=== PATIENT | female | born 1995 | race American Indian/Alaskan Native ===

== ENCOUNTER 2016-10-05 14:56 | Emergency (ER) | payer SELFPAY ==
[2016-10-05 15:14] VITALS: BP 135/72
[2016-10-05 17:21] LABS: Bilirubin,Urine NEG (Negative); Blood,Urine NEG (Negative); Ketones,Urine NEG (Negative); Leukocyte Esterase,Urine NEG (Negative); Mucus,Urine 1+ /HPF; Nitrite,Urine NEG (Negative); Protein,Urine <15 mg/dL mg/dL (Negative); Urobilinogen,Urine < 2.0 mg/dL (<2.0)
--- NOTE | 2016-10-05 18:10 | Emergency Department Report ---
ED Female HPI - General Chief complaint: Urogenital-Female Stated complaint: UTERINE PAIN Time Seen by Provider: 10/05/16 16:50 Source: patient, family Mode of arrival: Ambulatory Limitations: No Limitations - History of Present Illness Initial comments: Patient here and reported that she is having abdominal pain on and off that feels crampy. she says she has increased urinary frequency will allow. Sensation is urinary tract infection. She's had gone on times one week. Last menstrual period was 10/07/16. Patient also states that she has unprotected sex that she is not having any vaginal discharge and her partner didn't have any symptoms of STD. She is not having any pain at present. She said she had cramping but now she is not having any cramping. Pain is located in her pelvic area when it comes. She says she doesn't know if she is and she would like to get tested. Denies any nausea vomiting or fever or chills. No vaginal bleeding or back pain. MD Complaint: pelvic pain (off and on) Onset/Timin -: week(s) Severity scale (0 -10): 0 Consistency: intermittent (abdominal pain but none at present) Are you Now?: No (unsure if she is ) Last Menstrual Period: 09/21/16 EDC: 06/28/17 Associated Symptoms: abdominal pain, other (urine frequency). denies: vaginal discharge, vaginal bleeding, nausea/vomiting, fever/chills, headaches, loss of appetite, dysuria, hematuria, rash, seizure, shortness of breath, syncope, weakness - Related Data Sexually active: Yes (unprotected) Previous Rx's Medication Instructions Recorded Last Taken Type Fluticasone [Flonase] 2 spray NS QDAY #1 bottle 02/02/15 Unknown Rx Ibuprofen [Motrin] 600 mg PO Q8H PRN #40 tablet 02/02/15 Unknown Rx Loratadine [Claritin] 10 mg PO DAILY #30 tablet 02/02/15 Unknown Rx Prednisone [predniSONE 10 mg 10 mg PO .TAPER #1 tab.ds.pk 02/02/15 Unknown Rx (6-Day Pack, 21 Tabs)] Promethazine [Phenergan TAB] 25 mg PO Q6HR PRN #20 tab 02/02/15 Unknown Rx Sulfamethoxazole/Trimethoprim 1 each PO BID #20 tablet 02/02/15 Unknown Rx [Bactrim DS TAB] Allergies Allergy/AdvReac Type Severity Reaction Status Date / Time No Known Allergies Allergy Unverified 02/02/15 11:20 ED Review of Systems ROS: Stated complaint: UTERINE PAIN Other details as noted in HPI Comment: All other systems reviewed and negative Constitutional: denies: chills, fever ENT: denies: throat pain Respiratory: no symptoms reported Cardiovascular: denies: chest pain, palpitations, edema, syncope Gastrointestinal: abdominal pain (none now). denies: nausea, vomiting, diarrhea Genitourinary: frequency. denies: urgency, dysuria, hematuria, discharge, abnormal menses, dyspareunia Skin: denies: rash Neurological: denies: headache, weakness, numbness, paresthesias, confusion, abnormal gait, vertigo ED Past Medical Hx - Past Medical History Previous Medical History?: No - Surgical History Past Surgical History?: No - Family History Family history: no significant - Social History Smoking Status: Never Smoker Substance Use Type: None - Medications Home Medications: Home Medications Medication Instructions Recorded Confirmed Last Taken Type Fluticasone [Flonase] 2 spray NS QDAY #1 bottle 02/02/15 Unknown Rx Ibuprofen [Motrin] 600 mg PO Q8H PRN #40 tablet 02/02/15 Unknown Rx Loratadine [Claritin] 10 mg PO DAILY #30 tablet 02/02/15 Unknown Rx Prednisone [predniSONE 10 mg 10 mg PO .TAPER #1 tab.ds.pk 02/02/15 Unknown Rx (6-Day Pack, 21 Tabs)] Promethazine [Phenergan TAB] 25 mg PO Q6HR PRN #20 tab 02/02/15 Unknown Rx Sulfamethoxazole/Trimethoprim 1 each PO BID #20 tablet 02/02/15 Unknown Rx [Bactrim DS TAB] ED Physical Exam - General Limitations: No Limitations General appearance: alert, in no apparent distress - Head Head exam: Present: atraumatic, normocephalic, normal inspection - Eye Eye exam: Present: normal appearance, PERRL, EOMI. Absent: periorbital swelling , periorbital tenderness Pupils: Present: normal accommodation - ENT ENT exam: Present: normal exam, normal orophraynx, mucous membranes moist - Neck Neck exam: Present: normal inspection, full ROM. Absent: tenderness, lymphadenopathy - Respiratory Respiratory exam: Present: normal lung sounds bilaterally. Absent: respiratory distress, chest wall tenderness - Cardiovascular Cardiovascular Exam: Present: regular rate, normal rhythm, normal heart sounds - GI/Abdominal GI/Abdominal exam: Present: soft, normal bowel sounds. Absent: distended, tenderness, guarding, rebound, rigid, mass, bruit, hernia - Extremities Exam Extremities exam: Present: normal inspection, full ROM, normal capillary refill. Absent: tenderness, pedal edema, joint swelling, calf tenderness - Back Exam Back exam: Present: normal inspection, full ROM. Absent: tenderness, CVA tenderness (R), CVA tenderness (L), muscle spasm, paraspinal tenderness, vertebral tenderness, rash noted - Neurological Exam Neurological exam: Present: alert, oriented X3, normal gait, reflexes normal. Absent: motor sensory deficit - Psychiatric Psychiatric exam: Present: normal affect, normal mood - Skin Skin exam: Present: warm, dry, intact, normal color. Absent: rash ED Course Vital Signs 10/05/16 15:09 Temperature 98.5 F Pulse Rate 68 Blood Pressure 135/72 O2 Sat by Pulse 100 Oximetry - Reevaluation(s) Reevaluation #1: 10/05/16 18:20 Patient stable throughout ED stay ED Medical Decision Making - Lab Data Lab Results 10/05/16 10/05/16 Range/Units 16:32 Unknown Urine Color Yellow (Yellow) Urine Turbidity Clear (Clear) Urine pH 7.0 (5.0-7.0) Ur Specific [place] 1.018 (1.003-1.030) Urine Protein <15 mg/dl (Negative) mg/dL Urine Glucose (UA) Neg (Negative) mg/dL Urine Ketones Neg (Negative) mg/dL Urine Blood Neg (Negative) Urine Nitrite Neg (Negative) Urine Bilirubin Neg (Negative) Urine Urobilinogen < 2.0 (<2.0) mg/dL Ur Leukocyte Esterase Neg (Negative) Urine WBC (Auto) 1.0 (0.0-6.0) /HPF Urine RBC (Auto) 3.0 (0.0-6.0) /HPF U Epithel Cells (Auto) 6.0 (0-13.0) /HPF Urine Mucus 1+ /HPF Urine HCG, Qual Negative (Negative) - Medical Decision Making ED course: She reports urinary frequency and concerned about urinary tract infection and possible . She also reports that she has abdominal pain to her Pelvic area for 1 week off and on and she is not having that at present. She also reports that she had onset protected sex last week but she is not having any from her vaginal area. I discussed with patient that a urinalysis did not show any bacteria and her test was negative. Discussed with her if she decides she wants to have STD testing and she will need to follow up at [facility] Patient discharged home in stable condition. Critical care attestation.: If time is entered above; I have spent that time in minutes in the direct care of this critically ill patient, excluding procedure time. ED Disposition Clinical Impression: Pelvic cramping, Concern about current without diagnosis Disposition: DC-01 TO HOME OR SELFCARE Is pt being admited?: No Does the pt Need Aspirin: No Condition: Stable Instructions: Safe Sex (ED) Additional Instructions: Please follow up at [facility] if he desired to have STD testing Please follow-up with outside Medical Center for primary care visit and Pap smear Referrals: [facility] [Outside] - 2-3 Days [facility] [Outside] - 2-3 Days Forms: Work/School Release Form(ED)
[2016-10-05] MEDS ORDERED: NAPROSYN PO ONE (18:53)
[2016-10-05] MEDS ORDERED: MOTRIN PO ONE (19:01)
--- NOTE | 2016-10-05 19:09 | XRay Report ---
FINAL REPORT PROCEDURE: XR CHEST ROUTINE 2V TECHNIQUE: PA and lateral chest radiographs were obtained. CPT 70202 HISTORY: lump on chest COMPARISON: No prior studies are available for comparison. FINDINGS: Heart: Normal. Mediastinum/Vessels: Normal. Lungs/Pleural space: Normal. Bony thorax: No acute osseous abnormality. Other: There is metallic artifact from body jewelry. IMPRESSION: Negative exam..
== END 2016-10-05 19:06 | disposition home or self-care (01) ==
LOC: ED 14:56
DX: R10.2 Pelvic and perineal pain (principal); R35.0 Frequency of micturition
CPT/HCPCS: 71020; 81001; 81025; 99283

== ENCOUNTER 2018-12-23 16:55 | Emergency (ER) | payer SELFPAY ==
--- NOTE | 2018-12-23 16:57 | Emergency Department Report ---
Blank Doc - Documentation Documentation: This is a 23-year-old female that presents with acute on chronic intermittent headache. denies any other symptoms. Denies any head trauma. Denies any one sided weakness. This initial assessment/diagnostic orders/clinical plan/treatment(s) is/are subject to change based on patient's health status, clinical progression and re- assessment by fellow clinical providers in the ED. Further treatment and workup at subsequent clinical providers discretion. Patient/guardians urged not to elope from the ED as their condition may be serious if not clinically assessed and managed. Initial orders include: 1- Patient sent to [facility] for further evaluation and treatment
[2018-12-23] MEDS ORDERED: BENADRYL IV ONE (19:32)
[2018-12-23] MEDS ORDERED: NACL 0.9% 1000 ML 1,000 ML IV ONE (19:32)
[2018-12-23] MEDS ORDERED: TORADOL IV ONE (19:32)
[2018-12-23] MEDS ORDERED: REGLAN IV ONE (19:33)
[2018-12-23 21:01] LABS: Basophils # (Auto) 0.1 K/mm3 (0.0-0.1); Basophils % (Auto) 0.7 % (0.0-1.8); Hematocrit 40.5 % (30.3-42.9); Lymphocytes # (Auto) 1.1 K/mm3 (1.2-5.4); Mean Corpuscular HGB Conc 32 % (30-34); Mean Corpuscular Volume 84 fl (79-97); Monocytes # (Auto) 0.5 K/mm3 (0.0-0.8); Monocytes % (Auto) 6.1 % (0.0-7.3); Platelet Count 268 K/mm3 (140-440); Red Blood Count 4.82 M/mm3 (3.65-5.03); Red Cell Distribution Width 13.8 % (13.2-15.2)
[2018-12-23 21:06] LABS: Bilirubin,Urine NEG (Negative); Blood,Urine NEG (Negative); Color,Urine Yellow (Yellow); Mucus,Urine 3+ /HPF; Protein,Urine <15 mg/dL mg/dL (Negative); Urobilinogen,Urine < 2.0 mg/dL (<2.0)
[2018-12-23 21:17] LABS: Alanine Aminotransferase 26 units/L (7-56); Albumin 4.1 g/dL (3.9-5); BUN/Creatinine Ratio 11; Blood Urea Nitrogen 8 mg/dL (7-17); Calcium 8.6 mg/dL (8.4-10.2); Hemolysis Index 7
--- NOTE | 2018-12-23 21:57 | Emergency Department Report ---
ED Headache HPI - General Chief Complaint: Headache Stated Complaint: MIGRANE Time Seen by Provider: 12/23/18 16:56 Source: patient - History of Present Illness Initial Comments: Patient is a 23-year-old -[place] female with a history of chronic migraine headaches with occasional exacerbations who presents to the ED with a complaint of acute suspicion of a chronic migraine headaches with nausea and vomiting for the last 24 hours. Patient states that in the last 8 hours she has had multiple vomiting episodes because of a headache. Patient also complains of photophobia. Patient denies dizziness, change in vision, neck pain, chest pain, shortness of breath, syncope, seizures, fever, chills, cough, sore throat, nasal and sinus congestion, abdominal pain or traumatic injury. Timing/Duration: 24 hours Quality: severe, sharp Head Injury Location: global Recent Head Trauma: no recent headache/trauma Associated Symptoms: denies symptoms, nausea/vomiting. denies: confusion, fatigue, facial pain, fever/chills, flushing, loss of consciousness, nasal congestion, nasal drainage, numbness in legs/feet, seizures, sinus infection, stiff neck, vision changes, other Allergies/Adverse Reactions: Allergies No Known Allergies Allergy (Unverified 02/02/15 11:20) Home Medications: Ambulatory Orders Fluticasone [Flonase] 2 spray NS QDAY #1 bottle 02/02/15 Ibuprofen [Motrin] 600 mg PO Q8H PRN #40 tablet 02/02/15 Loratadine [Claritin] 10 mg PO DAILY #30 tablet 02/02/15 Prednisone [predniSONE 10 mg (6-Day Pack, 21 Tabs)] 10 mg PO .TAPER #1 tab.ds.pk 02/02/15 Promethazine [Phenergan TAB] 25 mg PO Q6HR PRN #20 tab 02/02/15 Sulfamethoxazole/Trimethoprim [Bactrim DS TAB] 1 each PO BID #20 tablet 02/02/15 Butalb/Acetamin/Caff 50-325-40 [Fioricet 50-325-40] 1 - 2 tab PO Q6HR PRN #15 tab 12/23/18 Cyclobenzaprine [Flexeril] 10 mg PO Q8H PRN #15 tablet 12/23/18 Ketorolac [Toradol] 10 mg PO Q8H PRN #20 tablet 12/23/18 Promethazine [Phenergan] 25 mg PO Q6HR PRN #24 tab 12/23/18 ED Review of Systems ROS: Stated complaint: MIGRANE Other details as noted in HPI Constitutional: denies: chills, fever Eyes: denies: eye pain, eye discharge, vision change ENT: denies: ear pain, throat pain Respiratory: denies: cough, shortness of breath, wheezing Cardiovascular: denies: chest pain, palpitations Endocrine: no symptoms reported Gastrointestinal: nausea, vomiting. denies: abdominal pain, diarrhea Genitourinary: denies: urgency, dysuria, discharge Musculoskeletal: denies: back pain, joint swelling, arthralgia Skin: denies: rash, lesions Neurological: headache. denies: weakness, paresthesias Psychiatric: denies: anxiety, depression Hematological/Lymphatic: denies: easy bleeding, easy bruising ED Past Medical Hx - Past Medical History Previous Medical History?: Yes Hx Headaches / Migraines: Yes - Surgical History Past Surgical History?: No - Social History Smoking Status: Never Smoker Substance Use Type: Marijuana - Medications Home Medications: Home Medications Medication Instructions Recorded Confirmed Last Taken Type Fluticasone [Flonase] 2 spray NS QDAY #1 bottle 02/02/15 Unknown Rx Ibuprofen [Motrin] 600 mg PO Q8H PRN #40 tablet 02/02/15 Unknown Rx Loratadine [Claritin] 10 mg PO DAILY #30 tablet 02/02/15 Unknown Rx Prednisone [predniSONE 10 mg 10 mg PO .TAPER #1 tab.ds.pk 02/02/15 Unknown Rx (6-Day Pack, 21 Tabs)] Promethazine [Phenergan TAB] 25 mg PO Q6HR PRN #20 tab 02/02/15 Unknown Rx Sulfamethoxazole/Trimethoprim 1 each PO BID #20 tablet 02/02/15 Unknown Rx [Bactrim DS TAB] Butalb/Acetamin/Caff 50-325-40 1 - 2 tab PO Q6HR PRN #15 tab 12/23/18 Unknown Rx [Fioricet 50-325-40] Cyclobenzaprine [Flexeril] 10 mg PO Q8H PRN #15 tablet 12/23/18 Unknown Rx Ketorolac [Toradol] 10 mg PO Q8H PRN #20 tablet 12/23/18 Unknown Rx Promethazine [Phenergan] 25 mg PO Q6HR PRN #24 tab 12/23/18 Unknown Rx ED Physical Exam - General Limitations: No Limitations General appearance: alert, in no apparent distress - Head Head exam: Present: atraumatic, normocephalic - Eye Eye exam: Present: normal appearance, PERRL, EOMI Pupils: Present: normal accommodation - ENT ENT exam: Present: normal exam, normal orophraynx, mucous membranes moist, TM's normal bilaterally, normal external ear exam - Neck Neck exam: Present: normal inspection, full ROM. Absent: tenderness, lymphadenopathy, thyromegaly - Respiratory Respiratory exam: Present: normal lung sounds bilaterally. Absent: respiratory distress, wheezes, rales, rhonchi, chest wall tenderness, accessory muscle use, decreased breath sounds - Cardiovascular Cardiovascular Exam: Present: regular rate, normal rhythm, normal heart sounds. Absent: systolic murmur, diastolic murmur, rubs, gallop - GI/Abdominal GI/Abdominal exam: Present: soft, normal bowel sounds. Absent: tenderness, gua rding, rebound, hyperactive bowel sounds, hypoactive bowel sounds, organomegaly, bruit - Rectal Rectal exam: Present: deferred - Extremities Exam Extremities exam: Present: normal inspection, full ROM, normal capillary refill - Back Exam Back exam: Present: normal inspection, full ROM. Absent: tenderness, CVA tenderness (R), CVA tenderness (L), muscle spasm, paraspinal tenderness - Neurological Exam Neurological exam: Present: alert, oriented X3, CN II-XII intact, normal gait, reflexes normal - Psychiatric Psychiatric exam: Present: normal affect, normal mood - Skin Skin exam: Present: warm, dry, intact, normal color. Absent: rash ED Course Vital Signs 12/23/18 12/23/18 12/23/18 17:02 20:17 20:47 Temperature 98.0 F Pulse Rate 97 H Respiratory 16 16 16 Rate Blood Pressure 117/93 O2 Sat by Pulse 100 Oximetry - Reevaluation(s) Reevaluation #1: 12/23/18 21:58 This is a 23-year-old female who presented to the ED with worsening migraine headache with nausea and vomiting for 24 hours. In the ED, patient is alert and oriented 3, is hemodynamically stable and appears to be in pain. Patient was treated in the ED from nausea and vomiting and headache. Lab test results were reviewed and are all unremarkable. On reevaluation, patient's headache resolved with medications as well as nausea and vomiting. Patient was discharged home on medications and advised to follow-up with her primary care physician in 5-7 days for reevaluation or return to the ED immediately if symptoms get worse. ED Medical Decision Making - Lab Data Result diagrams: 12/23/18 20:46 12/23/18 20:46 - Medical Decision Making This is a 23-year-old female who presented to the ED with worsening migraine headache with nausea and vomiting for 24 hours. In the ED, patient is alert and oriented 3, is hemodynamically stable and appears to be in pain. Patient was treated in the ED from nausea and vomiting and headache. Lab test results were reviewed and are all unremarkable. On reevaluation, patient's headache resolved with medications as well as nausea and vomiting. Patient was discharged home on medications and advised to follow-up with her primary care physician in 5-7 days for reevaluation or return to the ED immediately if symptoms get worse. - Differential Diagnosis Migraine headache; Tension type headache; Sinus headache, vomiting Critical care attestation.: If time is entered above; I have spent that time in minutes in the direct care of this critically ill patient, excluding procedure time. ED Disposition Clinical Impression: Nausea and vomiting in adult Migraine headache without aura Qualifiers: Status migrainosus presence: without status migrainosus Intractability: not intractable Qualified Code(s): G43.009 - Migraine without aura, not intractable, without status migrainosus Disposition: - TO HOME OR SELFCARE Is pt being admited?: No Does the pt Need Aspirin: No Condition: Stable Instructions: Migraine Headache (ED), Acute Nausea and Vomiting (ED) Additional Instructions: Take medications with food, drink plenty of fluids and follow-up with your primary care physician in 5-7 days for reevaluation. Return to the ED immediately if symptoms get worse. Prescriptions: Butalb/Acetamin/Caff 50-325-40 [Fioricet 50-325-40] 1 - 2 tab PO Q6HR PRN #15 tab PRN Reason: Headache Cyclobenzaprine [Flexeril] 10 mg PO Q8H PRN #15 tablet PRN Reason: Muscle Spasm Promethazine [Phenergan] 25 mg PO Q6HR PRN #24 tab PRN Reason: Nausea Ketorolac [Toradol] 10 mg PO Q8H PRN #20 tablet PRN Reason: Pain Referrals: PRIMARY CARE, [Primary Care Provider] - 3-5 Days [facility] [Outside] - 3-5 Days Time of Disposition: 21:54 Print Language: [place]
[2018-12-23 22:09] VITALS: BP 118/60
== END 2018-12-23 22:03 | disposition home or self-care (01) ==
LOC: ED 16:55
DX: G43.909 Migraine, unspecified, not intractable, without status migrainosus (principal); R11.2 Nausea with vomiting, unspecified; F12.10 Cannabis abuse, uncomplicated
CPT/HCPCS: 36415; 80053; 81001; 84703; 85025; 96361; 96374; 96375; 99284; J1200; J1885; J2765; J7030